=== PATIENT | male | born 1980 | race African-American/Black ===

== ENCOUNTER 2019-02-05 14:19 | Emergency (ER) | payer MEDICARE, OTHER | END 2019-02-05 15:12 | disposition home or self-care (01) | LOC: ERS 14:19 | DX: Z00.00 Encounter for general adult medical examination without abnormal findings (principal); F84.0 Autistic disorder | CPT/HCPCS: 99282 ==

== ENCOUNTER 2019-10-03 20:45 | Emergency (ER) | payer OTHER ==
[2019-10-03 21:29] LABS: #Eosinphils 0.2 thou/uL (0.0-0.7); #Lymphocytes 1.9 thou/uL (1.20-3.40); #Monocytes 0.4 thou/uL (0.11-0.59); #Neutrophils 1.4 thou/uL (1.40-6.50); %Basophils 1.1 % (0.0-1.0); %Monocytes 10.3 % (0.0-10.0); %Neutrophils 34.7 % (42.0-75.0); Hemoglobin 14.6 g/dL (14.0-18.0); Mean Corpuscular HGB CONC 34.5 g/dL (32.0-36.0); Mean Corpuscular Hemoglobin 28.9 pg (27.0-31.0); Mean Corpuscular Volume 83.6 fL (78.0-98.0); Mean Platelet Volume 7.7 fL (7.4-10.4); Platelet Count 231 thou/uL (130-400); RBC Distribution Width 11.4 % (11.5-14.5); Red Blood Cell (RBC) Count 5.04 mill/uL (4.70-6.10); White Blood Cell (WBC) Count 3.9 thou/uL (4.8-10.8)
[2019-10-03 21:52] LABS: ALT (SGPT) 15 U/L (8-55); AST (SGOT) 16 U/L (5-34); Albumin 4.2 g/dL (3.5-5.0); Alkaline Phosphatase 91 U/L (40-110); Anion Gap 11 mmol/L (10-20); BUN (Urea Nitrogen) 15 mg/dL (8.9-20.6); Bilirubin, Total 0.3 mg/dL (0.2-1.2); Calc. Creatinine Clearance 0 mL/min (70-130); Calcium 9.1 mg/dL (7.8-10.44); Carbon Dioxide 27 mmol/L (22-29); Chloride 103 mmol/L (98-107); Estimated GFR-MDRD Greater than 90; Globulin 3.1 g/dL (2.4-3.5); Glucose 91 mg/dL (70-105); Lipase 39 U/L (8-78); Potassium 3.9 mmol/L (3.5-5.1); Protein, Total 7.3 g/dL (6.0-8.3); Sodium 137 mmol/L (136-145)
[2019-10-03 21:54] LABS: Bilirubin Negative (Negative); Blood, Urine Negative (Negative); Clarity Clear (Clear); Glucose, Urine (Dipstick) Normal (Negative); Leukocyte Negative Leu/uL (Negative); Nitrite Negative (Negative); Protein, Urine (Dipstick) Negative (Neg-Trace)
== END 2019-10-03 22:15 | disposition home or self-care (01) ==
LOC: ERS 20:45
DX: R10.9 Unspecified abdominal pain (principal)
CPT/HCPCS: 36415; 80053; 81003; 83690; 85025; 99284

== ENCOUNTER 2019-12-21 06:04 | Day surgery (SDC) | payer MEDICARE ==
[2019-12-20 15:47] VITALS: BMI 23.9
[2019-12-21] MEDS ORDERED: PHENYLEPHRINE-NS 100 MCG/ML 10 ML SYRINGE ONE ×2 (08:30→10:20)
[2019-12-21] MEDS ORDERED: Glycopyrrolate 0.2 MG/ML 5 ML SYRINGE ONE ×2 (08:30→10:20)
--- NOTE | 2019-12-21 09:56 | OP ---
DATE OF PROCEDURE: 12/21/2019 PROCEDURES PERFORMED: Esophagogastroduodenoscopy (diagnostic), colonoscopy (incomplete). INDICATION FOR PROCEDURE: Periumbilical abdominal pain. DESCRIPTION OF PROCEDURE: After the risks and benefits of the procedures were explained to the patient's surrogate (patient's mother) including risks of bleeding, infection, perforation, reactions to anesthesia, aspiration, and/or pain, informed consent was obtained. The patient was then taken to the endoscopy suite, where deep sedation was administered via propofol and anesthesia support. Once adequate sedation was achieved, the standard gastroscope was introduced into the mouth with intubation of the esophagus, stomach, and the proximal small intestines with the findings listed below. Upon completion of this portion of the procedure, all equipment was removed from the patient, and the bed was rotated 180 degrees in anticipation of the colonoscopy. Once the bed was in adequate position, a digital rectal examination was performed followed by introduction of the standard colonoscope, which was advanced to 70 cm past the anal verge, at which point, further progress was impeded given a significant amount of retained solid and liquid stool. The quality of the prep was poor with inadequate visualization of the colonic mucosa and inadequate visualization of the colonic lumen allowing further progress to be achieved. The patient tolerated the procedures well with no immediate perioperative complications. Upon completion of the procedure, all equipment was removed from the patient. He was transferred to Day Stay in satisfactory condition. EGD FINDINGS: Esophagus: Normal-appearing mucosa was seen in the proximal, mid, and distal esophagus. The diaphragmatic pinch was seen at 40 cm while the gastroesophageal junction was seen at 37 cm denoting a 3 cm hiatal hernia, otherwise there was no evidence of erosions, ulcerations, mass lesions, or active/recent bleeding. A fibrous ring was also seen in the distal esophagus that was nonobstructive and easily traversed with the gastroscope. Given the lack of dysphagia symptoms, empiric dilation was not performed. Stomach: Normal-appearing mucosa was seen in the gastric cardia, fundus, body, greater curvature, antrum, and incisura. There was no evidence of erosions, ulcerations, mass lesions, or active/recent bleeding. Duodenum: Normal-appearing mucosa was seen in both the duodenal bulb and second portion of the duodenum. There was no evidence of erosions, ulcerations, mass lesions, or active/recent bleeding. IMPRESSION: 1. A 3 cm hiatal hernia, which could contribute to acid reflux in this autistic patient. 2. Otherwise normal upper endoscopy. COLONOSCOPY FINDINGS: Digital rectal exam: Normal findings were seen on external examination. Colon findings: A significant amount of retained solid and liquid stool (primarily liquid) was seen throughout the entire colon. The scope was able to be advanced to approximately 60 to 70 cm past the anal verge, at which point, further progress could not be achieved due to inadequate visualization of the colonic lumen as well as the colonic mucosa itself for evaluation. Upon withdrawal of the colonoscope, careful examination was performed with visualization of approximately 40% to 50% of the colonic mucosa. Of the mucosa seen, normal-appearing mucosa was seen in the distal descending, sigmoid colon, and rectum. Normal findings were seen on rectal retroflexion. IMPRESSION: 1. Inadequate colonoscopy prep due to a significant amount of retained solid and liquid stool resulting in inadequate visualization of the colonic lumen and colonic mucosa. 2. Otherwise, of the mucosa seen, normal-appearing mucosa was visualized. 3. No etiology for the patient's abdominal pain was seen during this examination. RECOMMENDATIONS: 1. We would restart the patient on a higher fiber diet and add MiraLAX 1/2 capful daily to his regimen for chronic constipation. 2. We would place the patient on omeprazole 20 mg daily, 30 to 45 minutes before breakfast for possible acid reflux contributing to his abdominal pain. 3. We will consider repeating the colonoscopy at a later date if not responding to PPI therapy. 4. We would proceed with CT scan as already ordered for evaluation of any abdominal pathology. 5. Follow up in the [facility] in 3 to 4 weeks. Job ID: [id number]
[2019-12-21] MEDS ORDERED: PROPOFOL 200 MG/20 ML VIAL ONE (10:20)
[2019-12-21] MEDS ORDERED: Lidocaine 1% PF 5 ML VIAL ONE (10:20)
== END 2019-12-21 09:40 | disposition home or self-care (01) ==
LOC: SDC 06:04
PROVIDERS: ATTEND Internal Medicine
PROC: 0DJD8ZZ Inspection of Lower Intestinal Tract, Via Natural or Artificial Opening Endoscopic (ICD-10-PCS; principal; 2019-12-21)
PROC: 0DJ08ZZ Inspection of Upper Intestinal Tract, Via Natural or Artificial Opening Endoscopic (ICD-10-PCS; 2019-12-21)
DX: K58.1 Irritable bowel syndrome with constipation (principal); K44.9 Diaphragmatic hernia without obstruction or gangrene; F84.0 Autistic disorder
CPT/HCPCS: J2001; J2704

== ENCOUNTER 2022-11-29 06:47 | Emergency (ER) | payer MEDICAID, MEDICARE | END 2022-11-29 07:23 | disposition home or self-care (01) | LOC: ERS 06:47 | DX: R21 Rash and other nonspecific skin eruption (principal); E78.5 Hyperlipidemia, unspecified; Z87.891 Personal history of nicotine dependence | CPT/HCPCS: 99282 ==

== ENCOUNTER 2023-09-29 10:57 | Emergency (ER) | payer OTHER | END 2023-09-29 11:52 | disposition home or self-care (01) | LOC: ERS 10:57 | DX: Z20.822 Contact with and (suspected) exposure to COVID-19 (principal); I10 Essential (primary) hypertension; E78.5 Hyperlipidemia, unspecified; Z79.899 Other long term (current) drug therapy | CPT/HCPCS: 87635; 99283 ==